=== PATIENT | female | born 1990 | race Caucasian/White ===

== ENCOUNTER 2019-01-31 15:03 | Emergency (ER) | payer OTHER | END 2019-01-31 16:20 | disposition home or self-care (01) | LOC: JERFT 15:03 ==

== ENCOUNTER 2019-05-15 19:19 | Emergency (ER) | payer OTHER ==
--- NOTE | 2019-05-15 19:39 | PDOC ---
Rapid Medical Evaluation Chief Complaint: Pain Time Seen by Provider: 05/15/19 19:39 Medical Evaluation: Allergies Allergy/AdvReac Type Severity Reaction Status Date / Time No Known Allergies Allergy Verified 01/31/19 15:08 05/15/19 19:39 I have performed a brief in-person evaluation of this patient. The patient presents with a chief complaint of: pelvic pain, period late Pertinent physical exam findings:stable and in NAD, non-focal I have ordered the following:labs The patient will proceed to the ED for further evaluation.
[2019-05-15 19:41] VITALS: BP 131/81; PULSE 76; TEMP 98.5; BMI 25.7
--- NOTE | 2019-05-15 21:26 | PDOC ---
Attending Attestation - Resident Resident Name: Padmini Madrigal - ED Attending Attestation I have performed the following: I have examined & evaluated the patient, The case was reviewed & discussed with the resident, I agree w/resident's findings & plan - HPI HPI: 05/16/19 00:25 see resident hpi - Physicial Exam PE: 05/16/19 00:26 agree with resident exam - Medical Decision Making 05/16/19 00:26 28-year-old female with pelvic pain Ultrasound revealed a 2.2 cm right ovarian cyst as well as a live 6-week 1 day intrauterine gestation Results were discussed at length with the patient who understands to return should she develop worsening pain or bleeding and to follow-up with [facility]
[2019-05-15 22:32] LABS: BASO % 0.6 % (0-2.0); EOS % 3.8 % (0-4.5); HEMATOCRIT 39.2 % (32.4-45.2); HEMOGLOBIN 13.3 GM/dL (10.7-15.3); LYMPH % 20.1 % (8-40); MCHC 33.9 g/dl (32.0-36.0); MEAN CELL VOLUME 88.6 fl (80-96); MEAN PLT VOLUME 9.1 fl (7.5-11.1); MONO % 8.7 % (3.8-10.2); NEUT % 66.8 % (42.8-82.8); PLATELET COUNT 203 K/MM3 (134-434); RBC 4.42 M/mm3 (3.60-5.2); RDW 13.2 % (11.6-15.6); WHITE BLOOD COUNT 9.7 K/mm3 (4.0-10.0)
--- NOTE | 2019-05-15 22:42 | PDOC ---
History of Present Illness - General Chief Complaint: Pain Stated Complaint: ABDOMINAL PAIN Time Seen by Provider: 05/15/19 19:39 History Source: Patient Exam Limitations: No Limitations Past History - Past Medical History Allergies/Adverse Reactions: Allergies Allergy/AdvReac Type Severity Reaction Status Date / Time No Known Allergies Allergy Verified 05/15/19 19:41 Home Medications: Ambulatory Orders Cephalexin [Keflex] 500 mg PO BIDAC #14 capsule 07/16/14 Diphenhydramine HCl [Benadryl Capsule -] 25 mg PO Q6H PRN #28 capsule 07/16/14 predniSONE [Deltasone -] 20 mg PO BID #10 tablet 07/16/14 Benzonatate [Tessalon Pearls -] 100 mg PO TID PRN #21 capsule 01/31/19 Ipratropium [place] 2 spray NS BID PRN #1 spray 01/31/19 Methylprednisolone [Medrol Dose [place]] 4 mg PO ASDIR #21 tablet 01/31/19 Asthma: Yes COPD: No - Psycho Social/Smoking Cessation Hx Smoking Status: No Smoking History: Never smoked Have you smoked in the past 12 months: No Number of Cigarettes Smoked Daily: 0 Information on smoking cessation initiated: No Hx Alcohol Use: No Drug/Substance Use Hx: No Substance Use Type: None *Physical Exam - Vital Signs Last Vital Signs Temp Pulse Resp BP Pulse Ox 98.5 F 76 17 131/81 100 05/15/19 19:39 05/15/19 19:39 05/15/19 19:39 05/15/19 19:39 05/15/19 19:39 - Physical Exam Comments: Vitals stable, pt afebrile. Pt in NAD, normal body habitus. Pt alert and oriented x3. bulb brander generally intact, muscular strength and sensation intact. No midline spinal tenderness, step-offs, or crepitus. Head normocephalic, atraumatic. Eyes PERRLA, EOMI. Oropharynx without erythema or exudates, no LAD b/l. No nasal congestion. Hearing intact. Clear heart sounds, S1/S2, no JVD, b/l pedal edema, or heart murmur. Clear lung sounds, no respiratory distress, wheezes, crackles, or accessory muscle use. +Suprapubic TTP, with no rebound, no guarding. Abdomen soft, non-distended, and with normoactive bowel sounds. No CVA TTP. +CMT, no adnexal TTP. Physiologic discharge with no erythema or friability at the cervix. Skin without jaundice or rash. 05/15/19 22:40 ED Treatment Course - LABORATORY CBC & Chemistry Diagram: 05/15/19 22:24 05/15/19 22:24 - ADDITIONAL ORDERS Additional order review: 05/15/19 22:24 RBC 4.42 MCV 88.6 MCHC 33.9 RDW 13.2 MPV 9.1 Neutrophils % 66.8 Lymphocytes % 20.1 Monocytes % 8.7 Eosinophils % 3.8 Basophils % 0.6 Discharge - Discharge Information Problems reviewed: Yes Clinical Impression/Diagnosis: Pelvic pain, IUP (intrauterine ), incidental Condition: Good Disposition: HOME - Admission No - Follow up/Referral Referrals: Phoenix Chatman MD [Primary Care Provider] - Ronan Ellis MD [Staff Physician] - - Patient Discharge Instructions Patient Printed Discharge Instructions: DI for Pelvic Pain Additional Instructions: You were seen in the ER today for pelvic pain. The results of your labs and imaging today showed that you are , with a good heart rate. Please follow-up with your primary care doctor and OB within 1-2 days to discuss your visit and make sure your symptoms have improved. Please return to the ER if you have any worsening pain, development of fevers or chills, loss of consciousness, inability to tolerate food or fluids, or any other concerns. - Post Discharge Activity
[2019-05-15 22:47] LABS: PH,URINE 5.5 (5.0-8.0); URINE APPEARANCE CLEAR; URINE BILIRUBIN NEGATIVE (NEGATIVE); URINE COLOR YELLOW; URINE GLUCOSE (UA) NEGATIVE (NEGATIVE); URINE KETONE NEGATIVE (NEGATIVE); URINE LEUK ESTERASE NEGATIVE (NEGATIVE); URINE NITRITE NEGATIVE (NEGATIVE); URINE PROTEIN NEGATIVE (NEGATIVE); URINE UROBILINOGEN 0.2 mg/dL (0.2-1.0)
[2019-05-15 23:27] LABS: ALBUMIN 3.9 g/dl (3.4-5.0); BILIRUBIN,TOTAL 0.2 mg/dL (0.2-1); BLOOD UREA NITROGEN 12.1 mg/dL (7-18); CALCIUM 8.8 mg/dL (8.5-10.1); CREATININE 0.7 mg/dL (0.55-1.3); POTASSIUM 3.5 mmol/L (3.5-5.1); TOT PROT 7.5 g/dl (6.4-8.2)
== END 2019-05-16 00:28 | disposition home or self-care (01) ==
LOC: JER 19:19
DX: O26.891 Other specified pregnancy related conditions, first trimester (principal); O34.81 Maternal care for other abnormalities of pelvic organs, first trimester; N83.291 Other ovarian cyst, right side; Z3A.01 Less than 8 weeks gestation of pregnancy
CPT/HCPCS: 36415; 76817-TC; 80053; 81003; 84702; 84703; 85025; 86850; 86900; 86901; 87086; 87491; 87591; 87661; 99281-25